=== PATIENT | male | born 1950 | race Caucasian/White ===

== ENCOUNTER → 2024-12-01 13:31 | Outpatient (CLI) | payer MEDICARE, SELFPAY ==
--- NOTE | 2024-12-01 13:35 | DI.MRI.S_ITS ---
PROCEDURE: MR ANKLE RT WO CON INDICATIONS: PAIN RIGHT FOOT/TENDON TECHNIQUE: Noncontrast sagittal T1 spin echo and T2 fast spin echo with fat saturation, axial proton density fast spin echo and T2 fast spin echo with fat saturation, coronal T1 spin echo and T2 fast spin echo with fat saturation through the ankle/hindfoot. COMPARISON: None. FINDINGS: Image quality: Excellent Tendons: Mild tenosynovitis of the posterior tibialis. The flexor digitorum longus, and the flexor hallucis longus are unremarkable. The extensor tendons are unremarkable. Mild tenosynovitis of the peroneal tendons, with longitudinal split tear of the peroneal brevis, and of the peroneal longus immediately inferior to the lateral malleolus. Mild tendinosis of the distal Achilles tendon with low grade interstitial tear at the distal segment and about the calcaneal insertion.. Mild marrow edema of the calcaneal tuberosity, reactive. Ligaments: The anterior and the posterior tibiofibular ligaments are intact. Full-thickness tear of the anterior talofibular ligament with heterotopic ossification about the anterior aspect of the lateral malleolus. Mild sprain of the posterior talofibular ligament. The calcaneal fibular ligament is intact. The deep portion of the deltoid ligament is unremarkable. Sinus tarsi: Unremarkable Plantar fascia: Thickening of the central cord, representing plantar fasciitis. Muscle: No muscle edema. Severe fatty atrophy of the abductor digiti minimi, concerning for denervation. Bones: Mild degenerative changes of the tibiotalar joint with mild subchondral marrow edema in the tibial plafond.. Multifocal degenerative changes of the midfoot, most pronounced and moderate at the 2nd tarsometatarsal joint, where there is moderate subchondral marrow edema and subchondral cystic changes. Trace tibiotalar effusion. Marked circumferential subcutaneous edema of the ankle, extending to the dorsal midfoot. IMPRESSION: 1. Longitudinal split tear of the peroneal brevis and the peroneal longus. 2. Low-grade tear of the distal Achilles tendon with mild reactive marrow edema of the calcaneal tuberosity. 3. 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 4. Plantar fasciitis. 5. Severe fatty atrophy of the abductor digiti minimi, likely secondary to denervation. 6. Mild degenerative changes tibiotalar joint. 7. Multifocal degenerative changes of the midfoot, most pronounced and moderate at the 2nd tarsometatarsal joint. Dictated by: Mell Barrios M.D. on 12/01/2024 at 16:25 Approved by: Mell Barrios M.D. on 12/01/2024 at 16:34
== END ==
PROVIDERS: Referring Provider Podiatrist; Visit Provider Podiatrist
DX: S86.311D Strain of muscle(s) and tendon(s) of peroneal muscle group at lower leg level, right leg, subsequent encounter (principal); S86.011A Strain of right Achilles tendon, initial encounter; S93.491A Sprain of other ligament of right ankle, initial encounter; M76.71 Peroneal tendinitis, right leg; M79.671 Pain in right foot; M72.2 Plantar fascial fibromatosis
CPT/HCPCS: 73721

== ENCOUNTER → 2025-07-25 08:29 | Outpatient (CLI) | payer MEDICARE, SELFPAY ==
--- NOTE | 2025-07-25 08:31 | DI.MRI.S_ITS ---
PROCEDURE: MR ANKLE LT WO CON INDICATIONS: Left ft pain TECHNIQUE: Noncontrast sagittal T1 spin echo and T2 fast spin echo with fat saturation, axial proton density fast spin echo and T2 fast spin echo with fat saturation, coronal T1 spin echo and T2 fast spin echo with fat saturation through the ankle/hindfoot. COMPARISON: [facility], MR, MR ANKLE RT WO CON, 12/01/2024, 13:59. FINDINGS: Image quality: Diagnostic. Osseous structures: Partial-thickness articular cartilage thinning and fraying in the anterior medial talar dome, posterior lateral talar dome and tibial plafond and, up to grade 3. No tibiotalar joint effusion. Intact articular cartilage in the subtalar joint. Partial-thickness articular cartilage thinning of the calcaneocuboid joint. Areas of full-thickness articular cartilage loss within the intertarsal joints and tarsometatarsal joints. Background osseous demineralization. No suspicious marrow replacing or destructive process. No acute fracture. Chronic, well-marginated, avulsion fracture of the distal lateral malleolus Ligaments: Scarring of the syndesmotic ligaments without acute tear. Scarring of the anterior talofibular ligament which inserts on the avulsed lateral malleolus ossicle, likely sequela of remote injury. Mild scarring of the posterior talofibular ligament without acute tear. No acute tear of the deltoid ligament. The calcaneofibular ligament inserts on the ossicle. No acute tear. Muscles / Tendons: Intact anterior extensor tendons. Intact medial flexor tendons. Mild tendinosis of the Achilles tendon. Moderate to severe tendinosis the retro malleolar inframalleolar peroneus longus and brevis. There is flattening of the posterior fibula with scarring of the superior peroneal retinaculum. Plantar fascia: Mild thickening of the central band of the plantar fascia. No adjacent edema. Moderate atrophy of flexor hallucis brevis and abductor digiti minimi, which may represent sequela of Gannon's neuropathy in the latter versus disuse in the former. Miscellaneous: Preserved fat in sinus tarsi. Subcutaneous fat edema along the lateral ankle and mid foot is nonspecific. Neurovascular: Unremarkable. IMPRESSION: 1. Moderate chondromalacia within the ankle joint. 2. 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 The ATFL and CFL insert on the avulsed fracture fragment. 3. Moderate to severe peroneal tendinosis with scarring of the superior peroneal retinaculum. Intratendinous mucoid change and possible longitudinal interstitial tearing of the retro malleolar to proximal inframalleolar tendon. 4. 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 5. Mild Achilles tendinosis. Dictated by: Krish Burch M.D. on 07/25/2025 at 16:51 Approved by: Krish uBrch M.D. on 07/25/2025 at 16:59
--- NOTE | 2025-07-25 09:34 | DI.MRI.S_ITS ---
PROCEDURE: MRFOOT LT WO CON INDICATIONS: Left foot pain TECHNIQUE: Multiphasic, multisequence MRI of the forefoot was performed, without intravenous contrast administration. COMPARISON: None. FINDINGS: OSSEOUS STRUCTURES: Subchondral insufficiency fracture of the 2nd metatarsal head which extends to the articular surface. Bone marrow edema extends to the distal 2nd metatarsal shaft. Severe chondromalacia within the tarsometatarsal joints with full- thickness articular cartilage loss in the 1st through 5th tarsometatarsal joint. Severe chondromalacia of the 1st tarsometatarsal joint. Bone marrow edema within the plantar 3rd, 4th, and 5th metatarsal heads without discrete T1 fracture line is concerning for developing stress reaction, which may be secondary to altered gait mechanics. Small joint effusions within the 2nd through 5th MTP joints. LIAGMENTS: Intact collateral ligaments of the 1st metatarsophalangeal joint and the 2nd through 5th metatarsophalangeal joints. No focal plantar plate tear. MUSCLES / TENDONS: No focal tear of the extensor digitorum longus or brevis tendons. Mild tendinosis of flexor hallucis longus. Intact flexor digitorum longus and brevis tendons. Moderate atrophy and fatty infiltration of the visualized distal foot intrinsic musculature. SOFT TISSUE: Nonspecific subcutaneous fat edema along the dorsal lateral forefoot. No Rob's neuroma. IMPRESSION: 1. Subchondral insufficiency fracture of the 2nd metatarsal head with findings concerning for developing insufficiency fractures of the 3rd through 5th metatarsal heads without discrete fracture line. 2. Severe chondromalacia in the 1st metatarsophalangeal joint and in the tarsometatarsal joints with areas of full-thickness articular cartilage loss. Dictated by: Krish Burch M.D. on 07/25/2025 at 16:59 Approved by: Krish Burch M.D. on 07/25/2025 at 17:05
== END ==
PROVIDERS: Referring Provider Podiatrist; Visit Provider Podiatrist
DX: S82.62XK Displaced fracture of lateral malleolus of left fibula, subsequent encounter for closed fracture with nonunion (principal); M84.475A Pathological fracture, left foot, initial encounter for fracture; M19.272 Secondary osteoarthritis, left ankle and foot; M94.272 Chondromalacia, left ankle and joints of left foot; M62.572 Muscle wasting and atrophy, not elsewhere classified, left ankle and foot; M25.475 Effusion, left foot; M79.672 Pain in left foot
CPT/HCPCS: 73718; 73721